=== PATIENT | male | born 1995 | race Caucasian/White ===

== ENCOUNTER 2020-10-15 14:17 | Emergency (ER) | payer OTHER ==
[~2020-10-15] VITALS: Ht 185.4 cm; Wt 98.0 kg
[2020-10-15 14:39] VITALS: BP 129/81
--- NOTE | 2020-10-15 18:34 | PHYS DOC ---
Past History Past Medical History: No Pertinent History (DANITA OATES APRN) Past Surgical History: No Surgical History (DANITA OATES APRN) Additional Smoking Information: VAPES Alcohol Use: None (DANITA OATES APRN) General Adult EDM: Chief Complaint: ANIMAL BITE HPI: HPI: Patient is a 24-year-old male who presents with abrasion to right foot for a dog bite yesterday. Patient states he was working on his own he was advised. Patient was seen in urgent care and prescribed an antibiotic. Patient was sent from urgent care to the emergency room due to unknown rabies vaccine status of the dog. Unknown tetanus. Patient denies any health history. Denies pain. (DANITA OATES APRN) Review of Systems: Review of Systems: Constitutional: Denies fever or chills Eyes: Denies change in visual acuity HENT: Denies nasal congestion or sore throat Respiratory: Denies cough or shortness of breath Cardiovascular: Denies chest pain or edema GI: Denies abdominal pain, nausea, vomiting, bloody stools or diarrhea : Denies dysuria Musculoskeletal: Denies back pain or joint pain Integument: Right foot abrasion Neurologic: Denies headache, focal weakness or sensory changes Endocrine: Denies polyuria or polydipsia Lymphatic: Denies swollen glands Psychiatric: Denies depression or anxiety (DANITA OATES APRN) Allergies: Allergies: Allergies Coded Allergies Type Severity Reaction Last Updated Verified No Known Drug Allergies 10/15/20 No (DANITA OATES APRN) Physical Exam: PE: Constitutional: Well developed, well nourished, no acute distress, non-toxic appearance. [] HENT: Normocephalic, atraumatic, bilateral external ears normal, oropharynx moist, no oral exudates, nose normal. [] Eyes: PERRLA, EOMI, conjunctiva normal, no discharge. [] Neck: Normal range of motion, no tenderness, supple, no stridor. [] Cardiovascular:Heart rate regular rhythm, no murmur [] Lungs & Thorax: Bilateral breath sounds clear to auscultation [] Abdomen: Bowel sounds normal, soft, no tenderness, no masses, no pulsatile medina s. [] Skin: Right foot abrasion. No redness, no edema Back: No tenderness, no CVA tenderness. [] Extremities: No tenderness, no cyanosis, no clubbing, ROM intact, no edema. [] Neurologic: Alert and oriented X 3, normal motor function, normal sensory function, no focal deficits noted. [] Psychologic: Affect normal, judgement normal, mood normal. [] (DANITA OATES APRN) Current Patient Data: Vital Signs: Vital Signs Date Time Temp Pulse Resp B/P (MAP) Pulse Ox O2 Delivery O2 Flow Rate FiO2 10/15/20 14:39 98.4 74 22 129/81 (97) 99 Room Air (DANITA OATES APRN) EKG: EKG: [] (DANITA OATES APRN) Radiology/Procedures: Radiology/Procedures: [] (DANITA OATES APRN) Heart Score: C/O Chest Pain: No Risk Factors: Risk Factors: DM, Current or recent (<one month) smoker, HTN, HLP, family history of CAD, obesity. Risk Scores: Score 0 - 3: 2.5% MACE over next 6 weeks - Discharge Home Score 4 - 6: 20.3% MACE over next 6 weeks - Admit for Clinical Observation Score 7 - 10: 72.7% MACE over next 6 weeks - Early Invasive Strategies (DANITA OATES APRN) Course & Med Decision Making: Course & Med Decision Making Pertinent Labs and Imaging studies reviewed. (See chart for details) [] Patient states that he is unsure if the dog has been vaccinated. Patient would like to get a rabies prophylaxis. Patient told to return to emergency room in 2 days for second dose or his primary care physician. Patient is already been prescribed antibiotic from urgent care. Patient instructed to continue taking the antibiotics as directed. Return to emergency room with worsening symptoms or any concerns. (DANITA OATES APRN) Course & Med Decision Making I oversaw care of patient while in ER. I reviewed case with COLLECTIONS TECHNICIAN and agree to note and plan of care as stated. Electronically signed, Brain Eckert DO (BRAIN ECKERT DO) Demond Disclaimer: Demond Disclaimer: This electronic medical record was generated, in whole or in part, using a voice recognition dictation system. (DANITA OATES APRN) Departure Departure: Impression: Primary Impression: Rabies, need for prophylactic vaccination against Disposition: 01 DC HOME SELF CARE/HOMELESS Condition: STABLE Referrals: PCP,NO (PCP) Patient Instructions: Rabies Vaccine suspension for injection Additional Instructions: Please return to your PCP or the emergency room in 2 days for your second dose of the vaccination. Please continue taking the antibiotic prescribed by urgent care as directed. EMERGENCY DEPARTMENT GENERAL DISCHARGE INSTRUCTIONS Thank you for coming to [facility] (ED) today and trusting us with you care. We trust that you had a positivie experience in our Emergency Department. If you wish to speak to the department management, you may call the director at [phone]. YOUR FOLLOW UP INSTRUCTIONS ARE FOLLOWS: 1. Do you have a private Doctor? If you do not have a private doctor, please ask for a resource list of physicians or clinics that may be able to assist you with follow up care. 2. The Emergency Physician has interpreted your x-rays. The X-Ray specialist will also review them. If there is a change in the findings, you will be notified in 48 hours when at all possible. 3. A lab test or culture has been done, your results will be reviewed and you will be notified if you need a change in treatment. ADDITIONAL INSTRUCTIONS AND INFORMATION: 1. Your care today has been supervised by a physician who is specially trained in emergency care. Many problems require more than one evaluation for a complete diagnosis and treatment. We recommend that you schedule your follow up appointment as recommended to ensure complete treatment of you illness or injury. If you are unable to obtain follow up care and continue to have a problem, or if your condition worsens, we recommend that you return to the ED. 2. We are not able to safely determine your condition over the phone nor are we able to give sound medical advice over the phone. For these safety reasons, if you call for medical advice we will ask you to come to the ED for further evaluation. 3. If you have any questions regarding these discharge instructions please call the ED at [phone]. SAFETY INFORMATION: In the interest of safety, wellness, and injury prevention; we encourage you to wear your sealbelt, if you smoke; quite smoking, and we encourage family to use a protective helmet for bicycling and other sporting events that present an increased risk for head injury. IF YOUR SYMPTOMS WORSEN OR NEW SYMPTOMS DEVELOP, OR YOU HAVE CONCERNS ABOUT YOUR CONDITION; OR IF YOUR CONDITION WORSENS WHILE YOU ARE WAITING FOR YOUR FOLLOW UP APPOINTMENT; EITHER CONTACT YOUR PRIMARY CARE DOCTOR, THE PHYSICIAN WHOSE NAME AND NUMBER YOU WERE GIVEN, OR RETURN TO THE ED IMMEDIATELY. DANITA OATES APRN Oct 15, 2020 18:34 BRAIN ECKERT DO Oct 20, 2020 15:28
[2020-10-15] MEDS ORDERED: RABIES VIRUS VACC PF 2.5 UNIT / 1 ML VIAL. VAX IM ONE (19:00)
[2020-10-15] MEDS ORDERED: DIPH,PERTUSS(ACELL),TET VAC/PF 0.5 ML SYRINGE. VAX IM ONE (19:00)
[2020-10-15] MEDS ORDERED: RABIES IMMUNE GLOBULIN/PF 300 UNIT/ML 5ML VIAL. VAX IM ONE (20:00)
[2020-10-15] MEDS ORDERED: BACITRACIN ZINC TOPICAL OINT PACKET. TP ONE (20:59)
== END 2020-10-15 21:08 | disposition home or self-care (01) ==
LOC: ER 14:17
DX: Z23 Encounter for immunization (principal); S90.811A Abrasion, right foot, initial encounter; W54.0XXA Bitten by dog, initial encounter; Y93.89 Activity, other specified; Y92.89 Other specified places as the place of occurrence of the external cause; Y99.8 Other external cause status
CPT/HCPCS: 90471; 90675; 96372; 99284